=== PATIENT | female | born 1985 | race Caucasian/White ===

== ENCOUNTER 2019-03-17 20:38 | Emergency (ER) | payer MEDICAID ==
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
[2019-03-17 22:11] VITALS: BP 138/80; PULSE 88
== END 2019-03-17 22:10 ==
LOC: FB.ED 20:38
DX: S90.812A Abrasion, left foot, initial encounter (principal); S90.811A Abrasion, right foot, initial encounter; F10.120 Alcohol abuse with intoxication, uncomplicated; F41.9 Anxiety disorder, unspecified; Z88.0 Allergy status to penicillin; Z88.8 Allergy status to other drugs, medicaments and biological substances; Z79.899 Other long term (current) drug therapy; V89.2XXA Person injured in unspecified motor-vehicle accident, traffic, initial encounter
CPT/HCPCS: 72040; 99284-25

== ENCOUNTER 2019-06-03 06:34 | Emergency (ER) | payer MEDICAID ==
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
[2019-06-03] MEDS ORDERED: Sodium Chloride 0.9% 10 ML Syringe FLUSH PRN (08:39)
[2019-06-03] MEDS ORDERED: LORazepam 2 MG/ML SDV IVPUSH ONE (08:40)
[2019-06-03] MEDS ORDERED: MVI, Adult with Vitamin K 10 ML, Thiamine 100 MG, Folic Acid 1 MG, Magnesium Sulfate 3 ... IV SCH ×5 (08:50)
[2019-06-03] MEDS ORDERED: MVI, Adult with Vitamin K 10 ML, Thiamine 100 MG, Folic Acid 1 MG, Magnesium Sulfate 3 ... IV ONE ×5 (11:00)
[2019-06-03 16:26] VITALS: BP 140/85; PULSE 103
== END 2019-06-03 16:09 ==
LOC: FB.ED 06:34
DX: S01.111A Laceration without foreign body of right eyelid and periocular area, initial encounter (principal); S01.81XA Laceration without foreign body of other part of head, initial encounter; F10.10 Alcohol abuse, uncomplicated; Y90.8 Blood alcohol level of 240 mg/100 ml or more; F41.9 Anxiety disorder, unspecified; Z79.899 Other long term (current) drug therapy; Z88.0 Allergy status to penicillin; Z88.8 Allergy status to other drugs, medicaments and biological substances; W19.XXXA Unspecified fall, initial encounter
CPT/HCPCS: 12013; 36415; 70150; 70486; 80053; 80305; 80320; 85025; 96365; 96366; 96375; 99284; J2060; J3411; J3475; J7030; G0480; J3490

== ENCOUNTER 2020-04-29 17:30 | Emergency (ER) | payer MEDICAID ==
[2020-04-29] MEDS ORDERED: Acetaminophen/HYDROcodone 325-5 MG Tab PO ONE (17:31)
--- NOTE | 2020-04-29 17:45 | EDM.PDOC ---
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 She doesn't really remember hitting it against something and she really felt that she pulled it. However, since that time she has had ongoing pain in the distal fifth metacarpal area and has had quite a bit of bruising. She reports that when she tries to extend her fourth and fifth fingers she has quite a bit of pain in the area and she has found it very difficult to use her hand because of the pain. She reports the pain is an 8/10 with use. It is improved at rest. It is a sharp spiking pain with use and and aching and throbbing pain at rest. She also has developed quite a bit of bruising over her dorsal ulnar aspect of her right hand. Has no wrist pain. She does have some tingling in her fingers but she has good color to her fingers. No other injuries. This occurred on 04/27/2020 while she was at work. There are no other associated signs or symptoms. There are no other modifying factors. 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: Acetaminophen - Related Data Allergies Allergy/AdvReac Type Severity Reaction Status Date / Time fentanyl Allergy Fainting Verified 04/29/20 17:44 Penicillins Allergy Rash Verified 04/29/20 17:44 Home Meds: Home Meds LORazepam 0.5 mg PO BID PRN 03/17/19 [History] PARoxetine HCL [Paxil] 30 mg PO DAILY 03/17/19 [History] traZODone 50 mg PO BEDTIME PRN 03/17/19 [History] Hydrocodone/Acetaminophen [Blissfield 5-325 Tablet] 1 - 2 tab PO Q6H PRN #8 tablet 04/29/20 [Rx] Past Medical History Gastrointestinal History: Reports: PUD Musculoskeletal History: Reports: Back Pain, Chronic, Neck Pain, Chronic Psychiatric History: Reports: Anxiety, Depression Endocrine/Metabolic History: Reports: Obesity/BMI 30+ - Past Surgical History GI Surgical History: Reports: Bariatric Procedure (History bypass surgery), EGD, Other (See Below) (Surgery for perforated peptic ulcer 2) Social & Family History - Family History Family Medical History: No Pertinent Family History - Caffeine Use Caffeine Use: Reports: Coffee, Soda - Living Situation & Occupation Living situation: Reports: , with Spouse Occupation: Unemployed Review of Systems - Review of Systems Review Of Systems: See Below Constitutional: Reports: No Symptoms Eyes: Reports: No Symptoms Ears: Reports: No Symptoms Nose: Reports: No Symptoms Mouth/Throat: Reports: No Symptoms Respiratory: Reports: No Symptoms Cardiovascular: Reports: No Symptoms GI/Abdominal: Reports: No Symptoms Genitourinary: Reports: No Symptoms Musculoskeletal: Reports: Hand Pain, Other (Right hand dominant) Skin: Reports: Bruising (Over right hand) Neurological: Reports: No Symptoms Psychiatric: Reports: No Symptoms ED EXAM, GENERAL - Physical Exam Exam: See Below Exam Limited By: No Limitations General Appearance: Alert, WD/WN, Mild Distress (Appears in some pain. She is nontoxic.) Eye Exam: Bilateral Eye: EOMI, Normal Inspection Ears: Normal External Exam, Hearing Grossly Normal Ear Exam: Bilateral Ear: Auricle Normal Nose: Normal Inspection, Normal Mucosa, No Blood Throat/Mouth: Normal Inspection, Normal Oropharynx, Normal Voice, No Airway Compromise Head: Atraumatic, Normocephalic Neck: Normal Inspection, Supple, Non-Tender, Full Range of Motion Respiratory/Chest: No Respiratory Distress, Lungs Clear, Normal Breath Sounds, No Accessory Muscle Use, Chest Non-Tender Cardiovascular: Normal Peripheral Pulses, Regular Rate, Rhythm, No Murmur Peripheral Pulses: 2+: Radial (L), Radial (R) GI/Abdominal: Normal Bowel Sounds, Soft, Non-Tender Back Exam: Normal Inspection Extremities: No Pedal Edema, Normal Capillary Refill, Limited Range of Motion (Secondary to pain.) Neurological: Alert, Oriented, CN II-XII Intact, Normal Cognition, No Motor/Sensory Deficits Psychiatric: Normal Affect Skin Exam: Warm, Dry, Intact, No Rash, Ecchymosis (Over right dorsal ulnar hand) ED TRAUMA EXTREMITY PROCEDURES - Splinting Right Upper Extremity Splint Site: Right ulnar gutter splint, short arm Pre-Procedure NV Status: Normal Post-Procedure NV Status: Normal Splint Material: Fiberglass Splint Design: Gutter (Ulnar gutter) Applied & Form Fitted By: Provider Provider Post-Splint Application NV Check: NV Status Normal Complications: No Course - Vital Signs Last Recorded V/S: Last Vital Signs Temp 36.6 C 04/29/20 17:45 Pulse 82 04/29/20 17:45 Resp 17 04/29/20 17:45 BP 134/91 H 04/29/20 17:45 Pulse Ox 98 04/29/20 17:45 - Orders/Labs/Meds Orders: Active Orders 24 hr Category Date Time Status Hand Comp Min 3V Rt [CR] Stat Exams 04/29/20 17:45 Taken - Radiology Interpretation Free Text/Narrative:: X-ray of right hand shows distal fifth metacarpal fracture (boxer's fracture). - Re-Assessments/Exams Free Text/Narrative Re-Assessment/Exam: 04/29/20 18:55: My initial thoughts when I was seeing the patient was a possible extensor tendon injury but x-ray shows that she has a distal fifth metacarpal fracture. I will place the patient in a short arm ulnar gutter splint to the right upper extremity. The patient will need to call her primary provider on Friday and get a referral to an orthopedic doctor for follow-up. After the splint was applied, the patient reports that it was feeling much improved. She can take Tylenol for pain as needed. Departure - Departure Time of Disposition: 19:10 Disposition: Home, Self-Care 01 Condition: Good Clinical Impression: Fracture of fifth metacarpal bone of right hand Qualifiers: Encounter type: initial encounter Fracture type: closed Metacarpal location: neck Fracture alignment: displaced Qualified Code(s): S62.336A - Displaced fracture of neck of fifth metacarpal bone, right hand, initial encounter for closed fracture - Discharge Information Prescriptions: Hydrocodone/Acetaminophen [Blissfield 5-325 Tablet] 1 - 2 tab PO Q6H PRN #8 tablet PRN Reason: Moderate to severe pain Instructions: How To Use a Sling, [id number], Metacarpal Fracture, [id number], Cast or Splint Care, Adult Referrals: PCP,None [Primary Care Provider] - Forms: ED Department Discharge Additional Instructions: The x-ray of your right hand showed a fracture of the right fifth knuckle. It was minimally displaced. You'll need to call your primary provider on Friday and get a referral to see an orthopedic doctor next week. Leave the splint intact. Use the sling for comfort and support. Keep your right hand elevated higher than your heart as often as possible. You can take Tylenol 1000 mg by mouth every 6 hours as needed for pain. Medication as prescribed for more severe pain (hydrocodone 5/325). You cannot take both the Tylenol and the hydrocodone as hydrocodone has acetaminophen in it as well. You should take the Tylenol for less severe pain and save the hydrocodone for more severe pain. Back to the emergency department for marked increase in pain, fever, any signs of infection or any other concerning sign or symptom. Sepsis Event Note (ED) - Focused Exam Vital Signs: Vital Signs Temp Pulse Resp BP Pulse Ox 04/29/20 17:45 36.6 C 82 17 134/91 H 98 - My Orders Last 24 Hours: My Active Orders 04/29/20 17:45 Hand Comp Min 3V Rt [CR] Stat - Assessment/Plan Last 24 Hours: My Active Orders 04/29/20 17:45 Hand Comp Min 3V Rt [CR] Stat
[2020-04-29 20:56] VITALS: BP 140/81; PULSE 74
== END 2020-04-29 19:27 | disposition home or self-care (01) ==
LOC: FB.ED 17:30
DX: S62.336A Displaced fracture of neck of fifth metacarpal bone, right hand, initial encounter for closed fracture (principal); F41.9 Anxiety disorder, unspecified; F32.9 Major depressive disorder, single episode, unspecified; E66.9 Obesity, unspecified; Z68.26 Body mass index [BMI] 26.0-26.9, adult; Z88.0 Allergy status to penicillin; Z79.899 Other long term (current) drug therapy; Z88.4 Allergy status to anesthetic agent; W23.0XXA Caught, crushed, jammed, or pinched between moving objects, initial encounter
CPT/HCPCS: 29125; 73130; 99283; A9270